=== PATIENT | male | born 1960 | race Caucasian/White ===

== ENCOUNTER 2017-09-26 13:40 | Outpatient (CLI) | END 2017-09-26 14:00 | disposition short-term general hospital (02) | LOC: AMBL 13:40 | PROVIDERS: ATTEND Family Medicine | DX: T73.2XXA Exhaustion due to exposure, initial encounter (principal); R42 Dizziness and giddiness; M54.2 Cervicalgia; M54.9 Dorsalgia, unspecified; M25.559 Pain in unspecified hip ==